=== PATIENT | female | born 1980 | race African-American/Black ===

== ENCOUNTER 2020-02-04 15:00 | Inpatient (IN) ==
[2020-02-04] MEDS ORDERED: SODIUM CHLORIDE 0.9% 1,000 ML IV STA (15:27)
[2020-02-04] MEDS ORDERED: HYDROmorphone 2 MG/1 ML VIAL IV STA (15:27)
[2020-02-04] MEDS ORDERED: ONDANSETRON 4 MG/2 ML VIAL IV STA (15:27)
[2020-02-04 15:56] LABS: Basophils % 0.2 % (0.0-0.8); Eosinophils % 0.3 % (0.00-10.9); Hemoglobin 12.2 GM/DL (12.0-16.0); Immature Granulocytes % 0.4 %; Immature Granulocytes Absolute 0.05 #; Lymphocytes # 0.5 10*3/uL (1.4-4.0); Lymphocytes % 4.4 % (21.3-54.2); Mean Corpuscular HGB Conc 34.9 GM/DL (32-36); Mean Corpuscular Volume 85.2 FL (87-102); Mean Platelet Volume 10.9 FL (9.6-12.0); Monocytes % 2.9 % (1.7-12.7); Neutrophils % 91.8 % (38.7-73.9); Platelet Count 219 T/CUMM (130-400); Red Blood Count 4.11 MC/CUMM (3.8-5.5); White Blood Count 12.3 T/CUMM (4-12)
[2020-02-04 16:01] LABS: Bacteria,Urine Occasional /HPF (Few); Bilirubin,Urine Negative (Negative); Blood, Urine Negative (Negative); Glucose,Urine (UA) 50 mg/dL (Negative); Hyaline Casts,Urine 4 /LPF (0-3); Ketones,Urine Negative (Negative); Mucus,Urine Occasional /LPF (Occasional); Nitrite,Urine Negative (Negative); Protein,Urine 100 MG/DL; Squamous Epithelial Cell,Urine Occasional /HPF (0-10); Urine Appearance CLEAR (Clear); Urine Color Yellow (Yellow); Urine Specific Gravity 1.015 (1.001-1.035); WBC,Urine 2 /HPF (0-6)
[2020-02-04 16:10] LABS: Albumin 2.7 G/DL (3.4-5.0); Bilirubin,Total 0.6 MG/DL (0.2-1.0); Calcium 8.9 MG/DL (8.5-10.1); Osmolality,Calculated 271.1 MOS/KG (273-304); Potassium 3.1 MMOL/L (3.5-5.1); Total Protein 8.5 G/DL (6.4-8.3)
[2020-02-04] MEDS ORDERED: amLODIPine 5 MG TABLET PO STA (16:26)
[2020-02-04 17:18] LABS: Giant Platelets 1+; Hypochromasia 4+; Lymphocytes 2 % (20-55); Microcytosis 2+; Platelet Estimate Adequate; Segmented Neutrophils 96 % (50-85); Total Cells Counted 100
[2020-02-04] MEDS ORDERED: MORPHINE 4 MG/1 ML VIAL IV STA (19:28)
[2020-02-04] MEDS ORDERED: DEXTROSE 50% 25 GM/50 ML VIAL IV PRN (19:40)
[2020-02-04] MEDS ORDERED: hydrALAZINE 20 MG/1 ML VIAL IV PRN (19:40)
[2020-02-04] MEDS ORDERED: ONDANSETRON 4 MG/2 ML VIAL IV PRN (19:40)
[2020-02-04] MEDS ORDERED: MORPHINE 4 MG/1 ML VIAL IV PRN (19:40)
[2020-02-04] MEDS ORDERED: POTASSIUM CHLORIDE 20 MEQ TABLET PO ONE (19:49)
[2020-02-04] MEDS ORDERED: PANTOPRAZOLE 40 MG VIAL IV STA (19:50)
[2020-02-04 20:13] LABS: PT Patient Result 10.7 SECS (9.8-11.9)
[2020-02-04] MEDS: DEXTROSE 5% NACL 0.45% 1,000 ML IV SCH (20:29)
[2020-02-04] MEDS: PIPERACILLIN/TAZOBACTAM 3,375 MG in SODIUM CHLORIDE 0.9% 100 ML IV SCH (20:50)
[2020-02-04] MEDS ORDERED: ENOXAPARIN 30 MG/0.3 ML SYRINGE SUBCUT SCH (21:00)
[2020-02-04 21:37] LABS: Barbiturates Screen,Urine Negative (Negative); Benzodiazepines Screen,Urine Negative (Negative); Cannabinoid Screen,Urine Positive (Negative); Opiate Screen,Urine Negative (Negative); Phencyclidine Screen,Urine Negative (Negative)
[2020-02-05] MEDS: carvediloL 12.5 MG TABLET PO SCH ×3 (00:25→17:22)
[2020-02-05] MEDS: DOCUSATE SODIUM 100 MG/10 ML UDCUP PO SCH ×2 (00:25→08:54)
[2020-02-05] MEDS: hydrALAZINE 25 MG TABLET PO SCH ×4 (00:25→20:00)
[2020-02-05] MEDS: HYDROmorphone 2 MG/1 ML VIAL IV PRN ×4 (01:45→19:59)
[2020-02-05] MEDS: PIPERACILLIN/TAZOBACTAM 3,375 MG in SODIUM CHLORIDE 0.9% 100 ML IV SCH ×3 (04:53→19:58)
[2020-02-05 05:55] LABS: Basophils % 0.2 % (0.0-0.8); Hematocrit 30.3 VOL% (35.7-47.0); Hemoglobin 10.6 GM/DL (12.0-16.0); Immature Granulocytes % 0.5 %; Immature Granulocytes Absolute 0.06 #; Lymphocytes # 0.8 10*3/uL (1.4-4.0); Lymphocytes % 6.7 % (21.3-54.2); Mean Corpuscular Volume 86.8 FL (87-102); Mean Platelet Volume 11.6 FL (9.6-12.0); Monocytes % 6.7 % (1.7-12.7); Neutrophils % 85.9 % (38.7-73.9); Platelet Count 191 T/CUMM (130-400); Red Blood Count 3.49 MC/CUMM (3.8-5.5); Red Cell Distribution Width 13.2 % (9.3-17.3); White Blood Count 12.2 T/CUMM (4-12)
[2020-02-05 06:48] LABS: Albumin 2.4 G/DL (3.4-5.0); Bilirubin,Total 1.6 MG/DL (0.2-1.0); Calcium 8.5 MG/DL (8.5-10.1); Osmolality,Calculated 277.1 MOS/KG (273-304); Risk Ratio 3.07; Total Protein 7.7 G/DL (6.4-8.3); VLDL CHOLESTEROL 11.6 MG/DL
[2020-02-05] MEDS: PANTOPRAZOLE 40 MG VIAL IV SCH (08:53)
[2020-02-05] MEDS: amLODIPine 10 MG TABLET PO SCH (08:54)
[2020-02-05 09:29] LABS: Total Protein 8.2 G/DL (6.4-8.3)
[2020-02-05] MEDS: DEXTROSE 5% NACL 0.45% 1,000 ML IV SCH ×2 (09:33→19:59)
[2020-02-05] MEDS ORDERED: POTASSIUM CHLORIDE 20 MEQ TABLET PO ONE (09:44)
[2020-02-05 10:39] LABS: HIV Antigen/Antibody Result Nonreactive (Nonreactive)
[2020-02-05] MEDS: PROMETHAZINE 25 MG/1 ML VIAL IM PRN (21:06)
[2020-02-06] MEDS: PIPERACILLIN/TAZOBACTAM 3,375 MG in SODIUM CHLORIDE 0.9% 100 ML IV SCH ×3 (04:34→20:03)
[2020-02-06] MEDS: PROMETHAZINE 25 MG/1 ML VIAL IM PRN ×2 (04:42→20:04)
[2020-02-06] MEDS: HYDROmorphone 2 MG/1 ML VIAL IV PRN ×3 (04:44→20:05)
[2020-02-06 08:44] LABS: Basophils % 0.4 % (0.0-0.8); Eosinophils # 0.2 10*3/uL (0.0-0.87); Eosinophils % 3.3 % (0.00-10.9); Hemoglobin 10.6 GM/DL (12.0-16.0); Immature Granulocytes % 0.2 %; Immature Granulocytes Absolute 0.01 #; Lymphocytes # 0.7 10*3/uL (1.4-4.0); Lymphocytes % 12.7 % (21.3-54.2); Mean Corpuscular HGB Conc 33.1 GM/DL (32-36); Mean Corpuscular Volume 89.4 FL (87-102); Mean Platelet Volume 10.9 FL (9.6-12.0); Monocytes % 5.5 % (1.7-12.7); Neutrophils % 77.9 % (38.7-73.9); Platelet Count 181 T/CUMM (130-400); Red Blood Count 3.58 MC/CUMM (3.8-5.5); Red Cell Distribution Width 13.3 % (9.3-17.3); White Blood Count 5.1 T/CUMM (4-12)
[2020-02-06] MEDS: PANTOPRAZOLE 40 MG VIAL IV SCH (08:45)
[2020-02-06] MEDS: DOCUSATE SODIUM 100 MG CAPSULE PO SCH ×2 (08:45→23:37)
[2020-02-06] MEDS: amLODIPine 10 MG TABLET PO SCH (08:45)
[2020-02-06] MEDS: carvediloL 12.5 MG TABLET PO SCH ×2 (08:45→17:31)
[2020-02-06] MEDS: hydrALAZINE 25 MG TABLET PO SCH ×3 (08:45→20:03)
[2020-02-06] MEDS: DEXTROSE 5% NACL 0.45% 1,000 ML IV SCH (08:46)
[2020-02-06 09:05] LABS: Eosinophils 3 % (0-10); Hypochromasia 1+; Lymphocytes 13 % (20-55); Microcytosis 1+; Ovalocytes Slight; Platelet Estimate Adequate; Segmented Neutrophils 79 % (50-85); Total Cells Counted 100
[2020-02-06 09:07] LABS: Albumin 2.4 G/DL (3.4-5.0); Bilirubin,Total 0.6 MG/DL (0.2-1.0); Calcium 8.9 MG/DL (8.5-10.1); Osmolality,Calculated 272.1 MOS/KG (273-304); Potassium 3.2 MMOL/L (3.5-5.1)
[2020-02-06] MEDS: POTASSIUM CHLORIDE 20 MEQ TABLET PO SCH (11:36)
[2020-02-06] MEDS: ZALEPLON 5 MG CAPSULE PO PRN (20:03)
[2020-02-07] MEDS: HYDROmorphone 2 MG/1 ML VIAL IV PRN (01:03)
[2020-02-07] MEDS: PIPERACILLIN/TAZOBACTAM 3,375 MG in SODIUM CHLORIDE 0.9% 100 ML IV SCH ×3 (04:04→20:39)
[2020-02-07 06:38] LABS: Total Protein (Chem) 8.2 G/DL (6.4-8.3)
[2020-02-07 08:31] LABS: Basophils % 0.5 % (0.0-0.8); Eosinophils # 0.1 10*3/uL (0.0-0.87); Eosinophils % 2.2 % (0.00-10.9); Hematocrit 30.4 VOL% (35.7-47.0); Hemoglobin 10.3 GM/DL (12.0-16.0); Immature Granulocytes % 0.2 %; Immature Granulocytes Absolute 0.01 #; Lymphocytes # 0.8 10*3/uL (1.4-4.0); Lymphocytes % 20.5 % (21.3-54.2); Mean Corpuscular HGB Conc 33.9 GM/DL (32-36); Mean Corpuscular Volume 88.1 FL (87-102); Mean Platelet Volume 11.4 FL (9.6-12.0); Monocytes % 9.9 % (1.7-12.7); Neutrophils % 66.7 % (38.7-73.9); Platelet Count 187 T/CUMM (130-400); Red Blood Count 3.45 MC/CUMM (3.8-5.5); Red Cell Distribution Width 13.4 % (9.3-17.3); White Blood Count 4.1 T/CUMM (4-12)
[2020-02-07 08:42] LABS: Albumin (SPE) 3.9 G/DL (3.2-5.3); Alpha 1 (SPE) 0.3 G/DL (0.1-0.4); Alpha 1 (SPE) Rel % 3.3 %; Alpha 2 (SPE) 0.7 G/DL (0.4-1.0); Alpha 2 (SPE) Rel % 8.9 %; Beta (SPE) 0.9 G/DL (0.5-1.1); Beta (SPE) Rel % 11.5 %; Gamma (SPE) 2.4 G/DL (0.7-1.7); Gamma (SPE) Rel % 29.3 %
[2020-02-07 08:50] LABS: Calcium 8.6 MG/DL (8.5-10.1); Osmolality,Calculated 279.7 MOS/KG (273-304); Potassium 3.2 MMOL/L (3.5-5.1)
[2020-02-07 08:57] LABS: Band Neutrophils 1 % (0-10); Eosinophils 2 % (0-10); Hypochromasia Slight; Lymphocytes 13 % (20-55); Microcytosis 1+; Platelet Estimate Adequate; Segmented Neutrophils 74 % (50-85); Total Cells Counted 100
[2020-02-07] MEDS: MAGNESIUM HYDROXIDE SUSP 30 ML UDCUP PO PRN (09:55)
[2020-02-07] MEDS: DOCUSATE SODIUM 100 MG CAPSULE PO SCH ×3 (09:56→20:38)
[2020-02-07] MEDS: amLODIPine 10 MG TABLET PO SCH (09:57)
[2020-02-07] MEDS: carvediloL 12.5 MG TABLET PO SCH ×2 (09:57→17:19)
[2020-02-07] MEDS: POTASSIUM CHLORIDE 20 MEQ TABLET PO SCH (09:57)
[2020-02-07] MEDS: PANTOPRAZOLE 40 MG VIAL IV SCH (11:29)
[2020-02-07] MEDS: DEXTROSE 5% NACL 0.45% 1,000 ML IV SCH ×2 (11:32→20:39)
[2020-02-07] MEDS: LACTULOSE 20 GM/30 ML UDCUP PO PRN (13:11)
[2020-02-07] MEDS: cloNIDine 0.1 MG TABLET PO SCH ×2 (14:18→20:38)
[2020-02-07] MEDS: ZALEPLON 5 MG CAPSULE PO PRN (20:38)
[2020-02-08] MEDS: PIPERACILLIN/TAZOBACTAM 3,375 MG in SODIUM CHLORIDE 0.9% 100 ML IV SCH ×3 (03:05→20:47)
[2020-02-08 06:16] LABS: Basophils % 0.7 % (0.0-0.8); Eosinophils # 0.2 10*3/uL (0.0-0.87); Eosinophils % 5.9 % (0.00-10.9); Hematocrit 29.3 VOL% (35.7-47.0); Hemoglobin 9.7 GM/DL (12.0-16.0); Immature Granulocytes % 0.3 %; Immature Granulocytes Absolute 0.01 #; Lymphocytes # 0.8 10*3/uL (1.4-4.0); Lymphocytes % 27.3 % (21.3-54.2); Mean Corpuscular HGB Conc 33.1 GM/DL (32-36); Mean Corpuscular Volume 89.3 FL (87-102); Mean Platelet Volume 11.1 FL (9.6-12.0); Monocytes % 11.8 % (1.7-12.7); Platelet Count 181 T/CUMM (130-400); Red Blood Count 3.28 MC/CUMM (3.8-5.5); Red Cell Distribution Width 13.2 % (9.3-17.3)
[2020-02-08 06:30] LABS: Calcium 8.6 MG/DL (8.5-10.1); Osmolality,Calculated 275.8 MOS/KG (273-304); Potassium 3.6 MMOL/L (3.5-5.1)
[2020-02-08] MEDS: carvediloL 12.5 MG TABLET PO SCH ×2 (08:53→17:06)
[2020-02-08] MEDS: amLODIPine 10 MG TABLET PO SCH (08:53)
[2020-02-08] MEDS: cloNIDine 0.1 MG TABLET PO SCH ×2 (08:53→20:45)
[2020-02-08] MEDS: DOCUSATE SODIUM 100 MG CAPSULE PO SCH ×3 (08:54→20:45)
[2020-02-08] MEDS: POTASSIUM CHLORIDE 20 MEQ TABLET PO SCH (08:54)
[2020-02-08] MEDS: PANTOPRAZOLE 40 MG VIAL IV SCH (08:56)
[2020-02-08] MEDS ORDERED: TUBERCULIN SKIN TEST 0.1 ML SYRINGE INTRADERM ONE (10:08)
[2020-02-08] MEDS: ZALEPLON 5 MG CAPSULE PO PRN (20:45)
[2020-02-08] MEDS: DEXTROSE 5% NACL 0.45% 1,000 ML IV SCH (20:46)
[2020-02-09] MEDS: DEXTROSE 5% NACL 0.45% 1,000 ML IV SCH ×3 (05:25→21:40)
[2020-02-09] MEDS: PIPERACILLIN/TAZOBACTAM 3,375 MG in SODIUM CHLORIDE 0.9% 100 ML IV SCH ×3 (05:26→20:23)
[2020-02-09 07:01] LABS: Basophils % 1.1 % (0.0-0.8); Eosinophils # 0.3 10*3/uL (0.0-0.87); Eosinophils % 6.6 % (0.00-10.9); Hematocrit 30.5 VOL% (35.7-47.0); Hemoglobin 10.1 GM/DL (12.0-16.0); Immature Granulocytes % 0.3 %; Immature Granulocytes Absolute 0.01 #; Lymphocytes % 25.5 % (21.3-54.2); Mean Corpuscular HGB Conc 33.1 GM/DL (32-36); Mean Corpuscular Volume 90.5 FL (87-102); Mean Platelet Volume 11.5 FL (9.6-12.0); Monocytes % 10.8 % (1.7-12.7); Neutrophils % 55.7 % (38.7-73.9); Platelet Count 196 T/CUMM (130-400); Red Blood Count 3.37 MC/CUMM (3.8-5.5); Red Cell Distribution Width 13.2 % (9.3-17.3); White Blood Count 3.8 T/CUMM (4-12)
[2020-02-09 07:10] LABS: Calcium 8.8 MG/DL (8.5-10.1); Potassium 4.2 MMOL/L (3.5-5.1)
[2020-02-09 08:12] LABS: Band Neutrophils 3 % (0-10); Eosinophils 3 % (0-10); Lymphocytes 17 % (20-55); Metamyelocytes 1 %; Segmented Neutrophils 69 % (50-85); Total Cells Counted 100
[2020-02-09 08:20] LABS: Platelet Estimate Adequate
[2020-02-09 08:21] LABS: Polychromasia Slight
[2020-02-09] MEDS: MAGNESIUM HYDROXIDE SUSP 30 ML UDCUP PO PRN (09:15)
[2020-02-09] MEDS: carvediloL 12.5 MG TABLET PO SCH ×2 (09:17→16:33)
[2020-02-09] MEDS: amLODIPine 10 MG TABLET PO SCH (09:17)
[2020-02-09] MEDS: POTASSIUM CHLORIDE 20 MEQ TABLET PO SCH (09:17)
[2020-02-09] MEDS: DOCUSATE SODIUM 100 MG CAPSULE PO SCH ×3 (09:17→20:24)
[2020-02-09] MEDS: cloNIDine 0.1 MG TABLET PO SCH ×2 (09:17→20:24)
[2020-02-09] MEDS: PANTOPRAZOLE 40 MG VIAL IV SCH (09:19)
[2020-02-09] MEDS: LACTULOSE 20 GM/30 ML UDCUP PO PRN (15:05)
[2020-02-09] MEDS: ZALEPLON 5 MG CAPSULE PO PRN (20:24)
[2020-02-10] MEDS: PIPERACILLIN/TAZOBACTAM 3,375 MG in SODIUM CHLORIDE 0.9% 100 ML IV SCH ×2 (03:26→16:22)
[2020-02-10] MEDS: DEXTROSE 5% NACL 0.45% 1,000 ML IV SCH (03:28)
[2020-02-10 05:57] LABS: Eosinophils # 0.4 10*3/uL (0.0-0.87); Eosinophils % 9.8 % (0.00-10.9); Hematocrit 31.4 VOL% (35.7-47.0); Hemoglobin 10.2 GM/DL (12.0-16.0); Immature Granulocytes % 0.2 %; Immature Granulocytes Absolute 0.01 #; Lymphocytes # 0.7 10*3/uL (1.4-4.0); Lymphocytes % 17.1 % (21.3-54.2); Mean Corpuscular HGB Conc 32.5 GM/DL (32-36); Mean Corpuscular Volume 88.7 FL (87-102); Mean Platelet Volume 10.8 FL (9.6-12.0); Neutrophils % 60.9 % (38.7-73.9); Platelet Count 214 T/CUMM (130-400); Red Blood Count 3.54 MC/CUMM (3.8-5.5); Red Cell Distribution Width 13.1 % (9.3-17.3); White Blood Count 4.1 T/CUMM (4-12)
[2020-02-10] MEDS ORDERED: ceFAZolin 2,000 MG in PREMIX 1 EACH IV ONE (06:30)
[2020-02-10 06:36] LABS: Calcium 8.9 MG/DL (8.5-10.1); Osmolality,Calculated 271.2 MOS/KG (273-304); Potassium 4.4 MMOL/L (3.5-5.1)
[2020-02-10] MEDS ORDERED: LIDOCAINE 1%/EPI INJ 20 ML VIAL ONE (07:44)
[2020-02-10] MEDS ORDERED: BUPIVACAINE MPF 0.25% 30 ML VIAL ONE (07:44)
[2020-02-10] MEDS ORDERED: propofoL 200 MG/20 ML VIAL IV ONE (07:54)
[2020-02-10] MEDS ORDERED: LIDOCAINE 2% 5 ML VIAL ONE (07:54)
[2020-02-10] MEDS ORDERED: fentaNYL 100 MCG/2 ML VIAL ONE (07:54)
[2020-02-10] MEDS ORDERED: MIDAZOLAM 2 MG/2 ML VIAL ONE (07:54)
[2020-02-10] MEDS ORDERED: TISSUE ADHESIVE 1 EACH APPLICATOR TOP ONE (09:25)
[2020-02-10 12:21] VITALS: BP 150/77
[2020-02-10] MEDS: cloNIDine 0.1 MG TABLET PO SCH (13:06)
[2020-02-10] MEDS: carvediloL 12.5 MG TABLET PO SCH (13:06)
[2020-02-10] MEDS: amLODIPine 10 MG TABLET PO SCH (13:06)
[2020-02-10] MEDS: POTASSIUM CHLORIDE 20 MEQ TABLET PO SCH (13:06)
[2020-02-10] MEDS: DOCUSATE SODIUM 100 MG CAPSULE PO SCH ×2 (13:08)
[2020-02-10] MEDS: PANTOPRAZOLE 40 MG VIAL IV SCH (13:08)
== END 2020-02-10 17:15 | disposition home or self-care (01) | DRG 803 ==
LOC: N.ED 15:00 → N.4E 19:39 → SUATTDRO 19:39 → N.4E 22:10
PROVIDERS: ADMIT Family Medicine; ATTEND Internal Medicine
PROC: IRBXLYN (2020-02-06 12:25)

== ENCOUNTER 2021-12-19 04:42 | Observation (INO) ==
[2021-12-19] MEDS ORDERED: NITROGLYCERIN 2% OINT 1 INCH/GM PACK TOP STA (05:11)
[2021-12-19] MEDS ORDERED: LABETALOL 20 MG/4 ML SYRINGE IV STA ×2 (05:11→05:56)
[2021-12-19 05:15] LABS: Basophils % 0.5 % (0.0-0.8); Eosinophils # 0.3 10*3/uL (0.0-0.87); Eosinophils % 3.9 % (0.00-10.9); Hematocrit 37.2 VOL% (35.7-47.0); Hemoglobin 12.3 GM/DL (12.0-16.0); Immature Granulocytes % 0.8 %; Immature Granulocytes Absolute 0.05 #; Lymphocytes # 0.6 10*3/uL (1.4-4.0); Lymphocytes % 9.5 % (21.3-54.2); Mean Corpuscular HGB Conc 33.1 GM/DL (32-36); Mean Corpuscular Volume 88.2 FL (87-102); Mean Platelet Volume 11.1 FL (9.6-12.0); Monocytes # 0.5 10*3/uL (0.11-0.8); Neutrophils % 78.3 % (38.7-73.9); Platelet Count 205 T/CUMM (130-400); Red Blood Count 4.22 MC/CUMM (3.8-5.5); Red Cell Distribution Width 14.3 % (9.3-17.3); White Blood Count 6.6 T/CUMM (4-12)
[2021-12-19 05:26] LABS: INR 0.9; PT Patient Result 9.9 SECS (10.1-12.1); Partial Thromboplastin Time 30.7 SECS (23.7-32.9)
[2021-12-19 05:44] LABS: Alanine Aminotransferase 31 U/L (13-56); Alkaline Phosphatase 502 U/L (45-117); Aspartate Amino Transferase 44 U/L (0-37); Bilirubin,Total < 0.39 MG/DL (0.20-1.00); Blood Urea Nitrogen 38 MG/DL (7-18); Calcium 9.2 MG/DL (8.5-10.1); Carbon Dioxide 26 MMOL/L (21-32); Chloride 107 MMOL/L (98-107); Glucose 86 MG/DL (74-106); Osmolality,Calculated 286.4 MOS/KG (273-304); Potassium 2.9 MMOL/L (3.5-5.1); Sodium 140 MMOL/L (136-145); Total Protein 7.8 G/DL (6.4-8.2)
[2021-12-19] MEDS ORDERED: hydrALAZINE 20 MG/1 ML VIAL IV STA (05:58)
[2021-12-19] MEDS ORDERED: POTASSIUM CHLORIDE 20 MEQ TABLET PO STA (07:49)
[2021-12-19] MEDS ORDERED: SODIUM CHLOR 0.9% KCL 40 MEQ 40 MEQ/1,000 ML BAG IV SCH (08:00)
[2021-12-19] MEDS ORDERED: ASPIRIN CHEW 81 MG TABLET PO STA (08:17)
[2021-12-19 08:49] LABS: Bilirubin,Urine Negative (Negative); Blood, Urine Negative (Negative); Glucose,Urine (UA) Negative (Negative); Hyaline Casts,Urine 1 /LPF (0-3); Ketones,Urine Negative (Negative); Mucus,Urine Occasional /LPF (Occasional); Nitrite,Urine Negative (Negative); Protein,Urine 100 mg/dL (Negative); RBC,Urine 6 /HPF (0-4); Squamous Epithelial Cell,Urine Few /HPF (0-10); Trichomonas,Urine Occasional /HPF (<1); Urine Appearance Slightly Hazy (Clear); Urine Color Yellow (Yellow); Urine Specific Gravity 1.012 (1.001-1.035); Urine Urobilinogen < 2.0 eU/dL (<2.0)
[2021-12-19 08:56] LABS: Barbiturates Screen,Urine Negative (Negative); Benzodiazepines Screen,Urine Negative (Negative); Cannabinoid Screen,Urine Negative (Negative); Opiate Screen,Urine Negative (Negative); Phencyclidine Screen,Urine Negative (Negative)
[2021-12-19] MEDS ORDERED: ONDANSETRON 4 MG/2 ML VIAL IV PRN (09:09)
[2021-12-19] MEDS ORDERED: DOCUSATE SODIUM 100 MG CAPSULE PO PRN (09:09)
[2021-12-19] MEDS ORDERED: hydrALAZINE 20 MG/1 ML VIAL IV PRN (09:09)
[2021-12-19] MEDS: SODIUM CHLORIDE 0.45% 1,000 ML IV SCH (10:29)
[2021-12-19] MEDS ORDERED: PIPERACILLIN/TAZOBACTAM 3.375 MG in SODIUM CHLORIDE 0.9% 100 ML IV SCH (13:00)
[2021-12-19] MEDS ORDERED: LABETALOL 20 MG/4 ML SYRINGE IV PRN (13:45)
[2021-12-19] MEDS ORDERED: INFLUENZA VIRUS VACCINE 0.5 ML SYRINGE IM ONE (14:38)
[2021-12-19] MEDS: carvediloL 12.5 MG TABLET PO SCH (17:08)
[2021-12-19] MEDS: ACETAMINOPHEN 325 MG TABLET PO PRN (17:10)
[2021-12-19] MEDS: NICOTINE 14 MG/24 HR PATCH TRANSDERM SCH (17:13)
[2021-12-19] MEDS ORDERED: ENOXAPARIN 30 MG/0.3 ML SYRINGE SUBCUT SCH (21:00)
[2021-12-20] MEDS: ACETAMINOPHEN 325 MG TABLET PO PRN (01:14)
[2021-12-20] MEDS ORDERED: PIPERACILLIN/TAZOBACTAM 3,375 MG in SODIUM CHLORIDE 0.9% 100 ML IV SCH (01:30)
[2021-12-20 06:06] LABS: Basophils % 0.6 % (0.0-0.8); Eosinophils # 0.3 10*3/uL (0.0-0.87); Eosinophils % 4.4 % (0.00-10.9); Hematocrit 33.3 VOL% (35.7-47.0); Hemoglobin 11.3 GM/DL (12.0-16.0); Immature Granulocytes % 0.3 %; Immature Granulocytes Absolute 0.02 #; Lymphocytes # 0.6 10*3/uL (1.4-4.0); Lymphocytes % 10.2 % (21.3-54.2); Mean Corpuscular HGB Conc 33.9 GM/DL (32-36); Mean Corpuscular Volume 86.7 FL (87-102); Mean Platelet Volume 11.4 FL (9.6-12.0); Monocytes # 0.5 10*3/uL (0.11-0.8); Monocytes % 8.3 % (1.7-12.7); Neutrophils % 76.2 % (38.7-73.9); Platelet Count 206 T/CUMM (130-400); Red Blood Count 3.84 MC/CUMM (3.8-5.5); Red Cell Distribution Width 14.9 % (9.3-17.3); White Blood Count 6.2 T/CUMM (4-12)
[2021-12-20 06:28] LABS: Calcium 8.8 MG/DL (8.5-10.1); Osmolality,Calculated 284.8 MOS/KG (273-304); Potassium 3.2 MMOL/L (3.5-5.1)
[2021-12-20 06:39] LABS: Risk Ratio 2.87; VLDL Cholesterol 18.8 MG/DL
[2021-12-20 08:23] VITALS: BP 149/97
[2021-12-20] MEDS ORDERED: POTASSIUM CHLORIDE 20 MEQ TABLET PO ONE (08:23)
[2021-12-20] MEDS ORDERED: CLOPIDOGREL 75 MG TABLET PO SCH (09:00)
[2021-12-20] MEDS ORDERED: ASPIRIN EC 81 MG TABLET PO SCH (09:00)
[2021-12-20] MEDS ORDERED: AMOXICILLIN/CLAV 875 MG TABLET PO SCH (09:00)
[2021-12-20] MEDS: SODIUM CHLORIDE 0.45% 1,000 ML IV SCH (09:18)
[2021-12-20] MEDS: carvediloL 12.5 MG TABLET PO SCH (09:19)
[2021-12-20] MEDS: NICOTINE 14 MG/24 HR PATCH TRANSDERM SCH (09:24)
[2021-12-20] MEDS ORDERED: ESCITALOPRAM 10 MG TABLET PO SCH (21:00)
== END 2021-12-20 18:08 | disposition home or self-care (01) ==
LOC: N.ED 04:42 → N.EDINP 04:42 → SUATTDRO 07:57 → N.EDINP 13:12 → N.2W 13:27
PROVIDERS: ADMIT Hospitalist; ATTEND Internal Medicine